=== PATIENT | female | born 1990 | race Caucasian/White ===

== ENCOUNTER 2017-11-14 17:42 | Emergency (ER) | payer OTHER ==
[2017-11-14 17:53] VITALS: BP 124/82; PULSE 88; TEMP 98.3; BMI 28.3
--- NOTE | 2017-11-14 17:54 | PDOC ---
Rapid Medical Evaluation Chief Complaint: Pain Time Seen by Provider: 11/14/17 17:50 Medical Evaluation: Allergies Allergy/AdvReac Type Severity Reaction Status Date / Time No Known Allergies Allergy Verified 11/14/17 17:50 11/14/17 17:51 I have performed a brief in-person evaluation of this patient. The patient presents with a chief complaint of: 19 wks , , was in argument earlier and then started having R abd pain, 7/10 pain, denies vag bleeding, just "felt like everything was knotting inside", LMP 07/03 Pertinent physical exam findings: tearful, anxious appearing I have ordered the following: labs, ultrasound The patient will proceed to the ED for further evaluation. Discharge Disposition - Diagnosis Abdominal pain affecting - Referrals - Patient Instructions - Post Discharge Activity
--- NOTE | 2017-11-14 18:12 | PDOC ---
Rapid Medical Evaluation Chief Complaint: Pain Time Seen by Provider: 11/14/17 17:50 Medical Evaluation: Allergies Allergy/AdvReac Type Severity Reaction Status Date / Time No Known Allergies Allergy Verified 11/14/17 17:50 Vital Signs Temp Pulse Resp BP Pulse Ox 98.3 F 88 16 124/82 100 11/14/17 17:50 11/14/17 17:50 11/14/17 17:50 11/14/17 17:50 11/14/17 17:50 Discharge Disposition - Diagnosis Abdominal pain affecting - Referrals - Patient Instructions - Post Discharge Activity
--- NOTE | 2017-11-14 18:19 | PDOC ---
History of Present Illness - General Chief Complaint: Pain Stated Complaint: PAIN ( 4WKS ) Time Seen by Provider: 11/14/17 17:50 History Source: Patient - History of Present Illness Timing/Duration: reports: constant Quality: reports: mild Past History - Past Medical History Allergies/Adverse Reactions: Allergies Allergy/AdvReac Type Severity Reaction Status Date / Time No Known Allergies Allergy Verified 11/14/17 17:50 Home Medications: Ambulatory Orders NK [No Known Home Medication] 11/14/17 COPD: No - Suicide/Smoking/Psychosocial Hx Smoking History: Never smoked Have you smoked in the past 12 months: No Information on smoking cessation initiated: No Hx Alcohol Use: No Drug/Substance Use Hx: No Substance Use Type: None Review of Systems - Review of Systems Constitutional: No: Chills, Fever ABD/GI: Yes: Abdominal cramping. No: Nausea, Vomiting : No: Dysuria, Flank Pain *Physical Exam - Vital Signs Last Vital Signs Temp Pulse Resp BP Pulse Ox 98.3 F 88 16 124/82 100 11/14/17 17:50 11/14/17 17:50 11/14/17 17:50 11/14/17 17:50 11/14/17 17:50 - Physical Exam General Appearance: Yes: Appropriately Dressed. No: Apparent Distress HEENT: positive: Normal Voice Neck: positive: Supple Respiratory/Chest: negative: Respiratory Distress Gastrointestinal/Abdominal: positive: Soft. negative: Tender Musculoskeletal: negative: CVA Tenderness Integumentary: positive: Dry, Warm Neurologic: positive: Fully Oriented, Alert, Normal Mood/Affect Medical Decision Making - Medical Decision Making 11/14/17 18:14 26-year-old female, , approximately 19 weeks by dates, has had care with multiple ultrasounds with no issues with so far, resides in [place] and visiting family in [place], here with upper abdominal pain that started in setting of verbal argument with family member today. Has since improved. No vaginal bleeding, dysuria, nausea, vomiting, fever or chills. Denies any trauma. No CP, SOB, palpitations, acute leg pain/swelling See exam Abd pain in 2nd trimester preg Has had multiple US in [facility] w/ no issues w/ preg so far No trauma No vag bleed No dysuria Stable w/ unremarkable exam Declines pain control -US and UA pending 11/14/17 20:51 US w/ IUP c/w 19 weeks w/ FHR. UA without e/o infxn. Pt continues to decline pain meds and evelyne well in NAD. Stable for dc w/ continued OB f/u *DC/Admit/Observation/Transfer Diagnosis at time of Disposition: Abdominal pain affecting - Discharge Dispostion Disposition: HOME Condition at time of disposition: Improved - Referrals - Patient Instructions Printed Discharge Instructions: Managing Symptoms of Additional Instructions: Take Tylenol every 6 hours as needed for pain and continue to follow-up with your OB - Post Discharge Activity
[2017-11-14 20:24] LABS: URINE APPEARANCE CLEAR; URINE BILIRUBIN NEGATIVE (<2.0 mg/dL); URINE BLOOD NEGATIVE (NEGATIVE); URINE COLOR LTYELLOW; URINE GLUCOSE (UA) NEGATIVE (NEGATIVE); URINE KETONE NEGATIVE (NEGATIVE); URINE LEUK ESTERASE TRACE (NEGATIVE); URINE NITRITE NEGATIVE (NEGATIVE); URINE PROTEIN NEGATIVE (NEGATIVE); URINE UROBILINOGEN NEGATIVE mg/dL (0.2-1.0)
[2017-11-14 20:52] LABS: EPI CELLS FEW /HPF (FEW); URINE BACTERIA RARE /hpf (NONE SEEN); URINE HYALINE CAST 1 /lpf; URINE MUCUS RARE
== END 2017-11-14 20:53 | disposition home or self-care (01) ==
LOC: JERFT 17:42
DX: O26.892 Other specified pregnancy related conditions, second trimester (principal); Z3A.19 19 weeks gestation of pregnancy; R10.9 Unspecified abdominal pain
CPT/HCPCS: 76815-TC; 81003; 81015; 99281-25